=== PATIENT | female | born 1950 | race Caucasian/White ===

== ENCOUNTER 2023-07-01 13:10 | Outpatient (POV) | payer MEDICARE, OTHER, SELFPAY ==
--- NOTE | 2023-07-01 14:03 | A.OFFVIS_ITS ---
HPI Data of Consult Patient: new to practice Consult date: 07/01/23 Requesting Physician: Elle Ruvalcaba APRN Primary Care Provider: Chloé Loco Consult Narrative Reason for consult: Left arm/hand numbness tingling/pain History of present illness: Ms. Mark is a 73 year old female who presents today as a new patient. She is a referral from [facility]. Today she rates her pain a 10 out of 10. Patient states she has pain throughout her left arm and into her left hand with numbness and tingling and severe pain that is almost constant. Patient does state that the pain gets worse with certain positioning. She states this is been going on for more than 4 to 5 months unrelated to any specific trauma or injury. She states that she did have recent imaging done at [facility] in [place]. She states that she went to Dr. Ferguson due to him being a back surgeon and he was not recommending any surgery at this time. She states that he did state that this would be a last option. Patient does state that she has tried [id number] Tylenol and ibuprofen along with heat and ice and to picals with minimal relief. Patient is currently in physical therapy and goes once a week and has been already for 4 weeks. She states that this has just made her symptoms worse. She states the pain interferes with her ability perform activities of daily living such as cooking and cleaning. She states initially it was just her first 2 fingers but now it is moved into the entire hand. Patient does states she has a history of carpal tunnel and did do injections in both of her wrist that did completely resolve this issue up until lately. 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 Patient states she did just have surgery last year to remove a wedge from her lung. She states they are continuing to monitor this. 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 She states it does help some and that they tried her on higher dosages however she could not tolerate it due to the side effects. Patient does see a marker shipments Nai Cormier at [facility] and is prescribed Plavix. Patient has been prescribed compounded cream and pregabalin in the past. Her Apolinar has been reviewed and is appropriate. CC: Elle Ruvalcaba APRN [facility] Disclaimer: The information contained in this section may have been updated after the patient was seen, as this information can be updated by other users. Medical History (Updated 07/01/23 @ 14:49 by Elle Ruvalcaba APRN) Cancer COPD (chronic obstructive pulmonary disease) Diabetes Heart disease HLD (hyperlipidemia) HTN (hypertension) Surgical History (Updated 07/01/23 @ 14:49 by Lorrie Carty RN) History of cancer surgery Family History (Updated 07/01/23 @ 14:48 by Lorrie Carty RN) Other Unknown family medical history Social History (Updated 07/01/23 @ 14:51 by Lorrie Carty RN) Smoking Status: Never smoker alcohol intake: never current occupational status: retired Travel in the last 8 weeks: None Review of Systems Review of Systems Review of systems:: pertinent systems reviewed and negative unless documented below Review of systems (narrative): Review of Systems: General: No recent weight changes, no fever, no sleep disturbances Respiratory: No cough, no shortness of air, no recurring pulmonary infections Cardiovascular/peripheral vascular: No chest pain, no palpitations, no edema, no shortness of breath Gastrointestinal: No new onset incontinence, normal bowel movements reported Genitourinary: No new onset incontinence Musculoskeletal: Left arm/hand numbness/tingling/pain Psychiatric: [Normal mood/affect] Neurological: [Denies weakness in extremities], [denies balance issues] Meds Home Medications and Allergies Home Medications Medication Instructions Recorded Confirmed Type clopidogrel 75 mg tablet 75 mg PO DAILY 07/01/23 07/01/23 History furosemide 20 mg tablet 20 mg PO DAILY 07/01/23 07/01/23 History glimepiride 4 mg tablet 4 mg PO DAILY 07/01/23 07/01/23 History metoprolol succinate 25 mg 25 mg PO DAILY 07/01/23 07/01/23 History tablet,extended release 24 hr pregabalin 50 mg capsule 50 mg PO BID 07/01/23 07/01/23 History rosuvastatin 10 mg tablet 10 mg PO DAILY 07/01/23 07/01/23 History valsartan 40 mg tablet 40 mg PO DAILY 07/01/23 07/01/23 History New Prescriptions to Start Prescriptions: Objective Narrative: Physical Exam: General: Alert and oriented x3, no acute distress, pleasant and cooperative Lungs: Respirations even and unlabored, symmetrical chest expansion Eyes: PERRL Musculoskeletal: Flexion and extension of cervical [spine] somewhat guarded secondary to pain, [antalgic gait noted] positive Spurling's test Neurological: Speech clear, no gross sensory deficit Additional findings Additional findings: Cervical MRI without contrast 04/05/2023 Findings: There is normal alignment of the cervical vertebral bodies. Vertebral body height is preserved. Bone marrow signal intensity is normal. No edema or pathological marrow replacement. Signal intensity within the substance of the spinal cord is normal. There is no acute paraspinal abnormality. There is a 2 cm T2 hyperintense right thyroid nodule. C2-3: No focal disc herniation, central stenosis, or neuroforaminal narrowing. C3-4: No focal disc herniation. Bilateral facet osteoarthropathy which causes mild right greater than left foraminal narrowing. C4-5: Mild facet osteoarthropathy no significant canal stenosis mild bilateral foraminal narrowing. C5-C6: Annular disc bulge with degenerative endplate changes and facet osteoarthropathy. No significant canal stenosis or neuroforaminal narrowing along the right. There is moderate left foraminal narrowing. C6-7: There is an annular disc bulge with degenerative endplate changes and facet osteoarthropathy. No significant central canal stenosis there is mild bilateral foraminal narrowing. C7-T1: No focal disc herniation central stenosis or neuroforaminal narrowing. Assessment and Plan *Assessment and plan (1) Cervical radiculopathy: Status: Acute Category: Medical Code(s): M54.12 - Radiculopathy, cervical region (2) Left arm pain: Status: Acute Category: Medical Code(s): M79.602 - Pain in left arm (3) Left hand paresthesia: Status: Acute Category: Medical Code(s): R20.2 - Paresthesia of skin Plan Patient is experiencing significant pain all down her left arm and into her hand. Patient did have a positive Spurling test and limited range of motion of her cervical spine during today's visit. I have counseled the patient that she may benefit from a cervical epidural steroid injection. Risk and benefits were discussed with the patient and she would like to proceed forward with this plan of care. Patient is currently on blood thinner and I have counseled her that we will reach out to Dr. Cormier's office to confirm she can stop this medication prior to this injection. This will be contingent on whether we can proceed forward with this injection. We will also reach out to [facility] there in [place] and get a copy of her imaging. Patient has tried and failed conservative therapy such as oral medication, heat and ice, topicals, physical therapy, at home stretching exercise for longer than 6 weeks. We will submit to insurance for a MANDO C6-C7 under fluoroscopy. Patient has been instructed to contact the clinic with any concerns before the next appointment. Dr. Bianchi has reviewed this note and agrees with this plan of care. This note was dictated using voice recognition software and make contain errors or omissions.
[2023-07-01 14:47] VITALS: BP 112/63; PULSE 95; RESP 18; O2SAT 91; BMI 26.4
== END 2023-07-01 23:59 ==
PROVIDERS: PCP Internal Medicine; Visit Provider Nurse Practitioner Family
DX: M54.12 Radiculopathy, cervical region (principal); M79.602 Pain in left arm; R20.2 Paresthesia of skin
CPT/HCPCS: 99202; G0463

== ENCOUNTER 2023-08-03 13:29 | Day surgery (SDC) | payer MEDICARE, OTHER, SELFPAY ==
[2023-08-03 13:51] VITALS: BP 146/76; PULSE 83; RESP 18; TEMP 36.3; O2SAT 95; BMI 26.6
[2023-08-03] MEDS: IOPAMIDOL-200 (41%);10ML VIAL 10 ML IV (14:01)
--- NOTE | 2023-08-03 14:01 | P.PCN_ITS ---
Procedure Date: 08/03/23 Time: 13:50 Anesthesiologist:: Victor M Cao CRNA Complications:: None Pre-procedure Diagnosis:: Degenerative disc cervical spine multilevels. Cervical radiculopathy. Post-procedure Diagnosis:: Same. Indications for Procedure:: Patient is a very pleasant 73-year-old female comes our clinic today for cervical epidural steroid injection. Her main complaint is right arm radiculopathy. She does not report some posterior cervical neck pain. She rates her pain 7/10. Procedure Details:: Procedure:Cervical epidural steroid injection Informed consent was obtained and the risks and benefits of the procedure were explained to the patient. The patient was taken to the procedure room and noninvasive monitors placed, including noninvasive blood pressure cuff and pulse oximeter. The neck was prepped using Chloraprep as a cleansing solution. The C6- C7 interspace was viewed using fluroscopy. The skin and subcutaneous tissues were anesthetized using lidocaine 1.5% and a 25-gauge needle. After this an 18- gauge Touhy epidural needle was placed into the C6-C7 interspace under fluroscopy guidance and advanced using loss of resistance to air until the epidural space was encountered. After confirmation of needle placement in the epidural space using contrast dye, a solution containing normal saline, 2 mL and Depo-Medrol 80 mg was incrementally injected into the cervical epidural space.~ The patient tolerated the procedure well with no complications. The patient was observed in the Pain Clinic and then discharged home neurologically intact. Plan and Disposition:: Patient was discharged without incident.
[2023-08-03 14:03] VITALS: BP 137/72; PULSE 81; RESP 18; O2SAT 95
[2023-08-03 14:05] VITALS: BP 126/60; PULSE 90; RESP 20
== END 2023-08-03 14:03 | disposition home or self-care (01) ==
PROVIDERS: PCP Internal Medicine; Visit Provider Nurse Anesthetist, Certified Registered
DX: M50.123 Cervical disc disorder at C6-C7 level with radiculopathy (principal)
CPT/HCPCS: 62321; Q9966

== ENCOUNTER 2023-08-23 11:32 | Outpatient (POV) | payer MEDICARE, OTHER, SELFPAY ==
[2023-08-23 11:42] VITALS: BP 139/79; PULSE 79; RESP 18; TEMP 36.8; O2SAT 98; BMI 26.4
--- NOTE | 2023-08-23 12:02 | A.OFFVIS_ITS ---
[facility] Pain Management SOAP Note Subjective:: Patient is a pleasant 73-year-old female who presents today for follow-up of cervical epidural steroid injection C6-C7 on 08/03/2023. We are currently treating the patient for cervical radiculopathy, left arm pain. Today she rates her pain a 7 out of 10. Patient states that she has had significant improvement from this injection and feels like it still helping. Patient does state that she still has her pain however it is much more manageable. Patient states that she has been able to do more following this injection. She does state that her pain had been a 20 out of 10 and brought it down to the 7 out of 10 so it has made a difference. She does state that she did have concerns that she did not actually meet the provider who did the injection. Patient states she was already positioned for this injection when he came in and and that she was unsure whether or not if imaging was done for this injection. Patient does state that she continues to have chronic pain and a lot related to nerve pain from having cancer multiple times and doing radiation. Patient does state that she has been prescribed a compounded cream in the past and it does help somewhat. Patient is currently on pregabalin. Her Apolinar has been reviewed. Review of Systems: General: No recent weight changes, no fever, no sleep disturbances Respiratory: No cough, no shortness of air, no recurring pulmonary infections Cardiovascular/peripheral vascular: No chest pain, no palpitations, no edema, no shortness of breath Gastrointestinal: No new onset incontinence, normal bowel movements reported Genitourinary: No new onset incontinence Musculoskeletal: Left arm pain Psychiatric: [Normal mood/affect] Neurological: [Denies weakness in extremities], [denies balance issues] Objective:: Physical Exam: General: Alert and oriented x3, no acute distress, pleasant and cooperative Lungs: Respirations even and unlabored, symmetrical chest expansion Eyes: PERRL Musculoskeletal: Flexion and extension of left shoulder somewhat guarded secondary to pain, [antalgic gait noted] Neurological: Speech clear, no gross sensory deficit Assessment:: Left arm pain, chronic pain syndrome Plan:: I have reviewed over with the patient that multiple images were taking with C arm for her cervical epidural. Patient was provided picture imaging to look at to show. I have also discussed with the patient in future that anytime she can request to see the provider prior to the injection if she has additional questions or concerns. I will order the patient a compounded cream and patient will return to clinic in 1 month for reevaluation of symptoms and plan of care. Patient has had significant improvement following her injection. Patient has been instructed to contact the clinic with any concerns before the next appointment. Dr. Bianchi has reviewed this note and agrees with this plan of care. This note was dictated using voice recognition software and make contain errors or omissions. [facility] Disclaimer: The information contained in this section may have been updated after the patient was seen, as this information can be updated by other users. Medical History Cancer COPD (chronic obstructive pulmonary disease) Diabetes HTN (hypertension) HLD (hyperlipidemia) Heart disease Surgical History History of cancer surgery Family History Other Unknown family medical history Social History Smoking Status: Never smoker alcohol intake: never current occupational status: other Travel in the last 8 weeks: None
== END 2023-08-23 23:59 ==
LOC: SC.PAIN 11:33
PROVIDERS: PCP Internal Medicine; Visit Provider Nurse Practitioner Family
DX: M79.602 Pain in left arm (principal); G89.4 Chronic pain syndrome
CPT/HCPCS: 99212; G0463

== ENCOUNTER 2023-11-04 14:18 | Outpatient (POV) | payer MEDICARE, OTHER, SELFPAY ==
--- OUTSIDE RECORDS SUMMARY | 2023-11-04 14:20 | XMS_ITS | Clinical Summary ---
Author Name Unknown Address [address] [place] [address] Phone Organization [facility] Address [address] [place] [address] Phone Care Team Providers Care Managed Services Consultant Name Role Phone Panda Paige Unavailable Unavailable Conditions or Problems Problem Name Problem Code Onset Date Status Entry Date Provider Comment Standard Description Annotate History of renal cell carcinoma 684725003 (SNOMED CT) Active Leandra Pettit History of malignant neoplasm of kidney Disruption of external operation (surgical) wound-Initial encounter T81.31xA (ICD-10-CM) Active Leandra Pettit Disruption of external operation (surgical) wound, not elsewhere classified, initial encounter Infection following a procedure, initial encounter T81.4xxA (ICD-10-CM) Active Leandra Pettit Infection following a procedure, initial encounter Hx of nephrectomy [id number] (SNOMED CT) Active Erik Swann MD History of surgery Femoral femoral bypass [id number] (SNOMED CT) Active Erik Swann MD Femoral-femor al artery vascular bypass Peripheral artery disease 417165561 (SNOMED CT) Active Erik Swann MD Peripheral arterial occlusive disease Cellulitis, groin, left 39676671 (SNOMED CT) Active Erik Swann MD Cellulitis of groin Medications Medication Instructions Start Date Stop Date Generic Name NDC Provider MINOCYCLINE HCL 100 MG CAPS 100mg po MWF MINOCYCLINE HCL 57067037010 Erik Swann MD FUROSEMIDE 20 MG TABS one tablet by mouth daily FUROSEMIDE 40065915707 Modesta Perez PLAVIX 75 MG TABS one tablet by mouth daily CLOPIDOGREL BISULFATE 06695106441 Modesta Perez BYSTOLIC 5 MG TABS one tablet by mouth daily NEBIVOLOL HCL 56007070598 Modesta Perez BETAMETHASONE VALERATE CREA BETAMETHASONE VALERATE CREA 83301192527 Modesta Perez ASPIRIN ADULT LOW DOSE 81 MG TBEC daily ASPIRIN 12824735069 Modesta Perez ORBACTIV 400 MG SOLR 1200mg IV today ORITAVANCIN DIPHOSPHATE [id number] Erik Swann MD MINOCYCLINE HCL 100 MG CAPS 100mg po BID MINOCYCLINE HCL 76883017100 Erik Swann MD Medications Administered No information available. Allergies, Adverse Reactions, Alerts Allergy Name Reaction Description Start Date Severity Statu s Provider LEVAQUIN Rash Severe Active Erik anthony MD Results Date Name Value Unit Range Flag Description Office Visit: Room 6 MEDS REVIEW Done Documenta tion of current medications (procedure) DIET CHIEF OF HARBOR PATROL yes Dietary management education, guidance, and counseling (procedure) CIGARET SMKG yes Tobacco smoking status SMOK STATUS Former smoker Tobacco smoking status Lab Report: CBC WITH AUTO DI FFERENTIAL IMMATUREGRAN 0.02 10*3/MM3 0.00-0.03 Immature granulocytes [#/volume] in Blood BASO# 0.03 10*3/mm3 0.00-0.20 Basophils [#/vol ume] in Blood EOS ABSLT 0.29 10*3/uL 0.10-0.30 Eosinophi ls [#/volume] in Blood MONOSCT AUTO 0.42 10*3/uL 0.00-1.00 Monocy vania [#/volume] in Blood by Automated count LYMPHCT AUTO 1.37 10*3/mm3 0.60-4.80 Lymph ocytes [#/volume] in Blood by Automated count ABS NEUTROPH 2.85 10*3/uL 1.50-8.30 Neutro phils [#/volume] in Blood IMM GRANU % 0.4 % 0.0-0.6 Immature granulocytes/100 leukocytes in Blood [id number] 0.6 % 0.0-1.0 GE use only - for [employer] import when terms are not otherwise specified % EOS AUTO 5.8 % 0.0-3.0 H Eosinophil s/100 leukocytes in Blood by Automated count MONOCYTE % 8.4 % 0.0-12.0 Monocytes /100 leukocytes in Blood by Automated count LYMPHOCY BF 27.5 % 24.0-44.0 lymphoc ytes as percent of body fluid leukocytes PMN % 57.3 % 41.0-71.0 Neutrophils /100 leukocytes in Blood by Automated count PLATELETS 175 10*3/mm3 150-450 Platelets [#/volume] in Blood by Automated count RDW 14.0 % 11.3-14.5 Erythrocyte distribution width [Ratio] by Automated count MCHC 32.9 G/DL 32.0-36.0 MCHC [Mass/ volume] by Automated count MCH 30.0 pg 27.0-31.0 MCH [Entiti c mass] by Automated count MCV 91.2 fL 80.0-99.0 MCV [Entiti c volume] by Automated count HCT 42.3 % 34.5-44.0 Hematocrit [Volume Fraction] of Blood by Automated count HGB 13.9 g/dL 11.5-15.5 Hemoglobin [Mass/volume] in Blood RBC 4.64 10*6/mm3 3.89-5.14 Erythrocyt es [#/volume] in Blood by Automated count WBC 4.98 10*3/mm3 3.50-10.8 0 Leukocytes [#/volume] in Blood by Automated count Lab Report: SEDIMENTATION RA TE ESR 23 mm/h 0-30 Erythrocyte sedimentation rate by Westergren method Lab Report: C-REACTIVE PROTE IN CRPCARDRISK 1.50 MG/DL 0.00-10.0 0 C reactive protein [Mass/volume] in Serum or Plasma Lab Report: COMPREHENSIVE ME TABOLIC PANEL ANIONGAP 8.0 mmol/L 3.0-11.0 anion gap, serum BUN/CREAT 27.5 7.0-25.0 H Urea nitrogen/Creatinine [Mass Ratio] in Serum or Plasma GFRC 45 mL/min/1. 73m2 >60 L Glomerular Filtration Rate Calculation BILI TOTAL 0.4 mg/dL 0.3-1.2 Bilirubin. total [Mass/volume] in Serum or Plasma ALK PHOS 50 U/L 25-100 Alkaline owen sphatase [Enzymatic activity/volume] in Blood SGOT (AST) 20 U/L 0-33 Aspartate aminotransferase [Enzymatic activity/volume] in Serum or Plasma SGPT (ALT) 24 U/L 7-40 Alanine aminotransferase [Enzymatic activity/volume] in Serum or Plasma ALBUMIN 4.00 g/dL 3.20-4.80 Albumin [Mass/volume] in Serum or Plasma PROTEIN, TOT 6.7 g/dL 5.7-8.2 Protein [Mass/volume] in Serum or Plasma CALCIUM 9.6 mg/dL 8.7-10.4 Calcium [Moles/volume] in Serum or Plasma CO2 27.0 mmol/L 20.0-31.0 Carbon diox joe, total [Moles/volume] in Venous blood CHLORIDE 100 mmol/L 99-109 Chloride [Moles/volume] in Serum or Plasma POTASSIUM 4.1 mmol/L 3.5-5.5 Potassium [Moles/volume] in Serum or Plasma SODIUM 135 mmol/L 132-146 Sodium [Moles/volume] in Serum or Plasma CREATININE 1.20 mg/dL 0.60-1.30 Creatini ne [Mass/volume] in Serum or Plasma BUN 33 mg/dL 9-23 H Urea nitrogen [Mass/volume] in Serum or Plasma GLUCOSE SER 187 mg/dL 70-100 H Glucose [Mass/volume] in Serum or Plasma Plan of Care Type Date Detail Pending order Continue oral an tibiotics Pending order Change oral anti biotics Pending order CMP Pending order CBC with Differe ntial Pending order Sedimentation Ra te (ESR) Pending order C- reactive prot ein Pending order Continue oral an tibiotics Pending order CMP Pending order CBC with Differe ntial Pending order Sedimentation Ra te (ESR) Pending order C- reactive prot ein Pending order Wound Vac Pending order Continue oral an tibiotics Pending order Change oral anti biotics Pending order Wound Vac Pending order Hepatitis C Atb: (ICD 10 Code: Z11.59) Pending order New IV antibioti c Pending order CMP Pending order Sedimentation Ra te (ESR) Pending order C- reactive prot ein Pending order CBC with Differe ntial Pending order PIV/Butterfly Pending order Redress Wound Pending order Wound Culture an d Sensitivity Pending order Oritavancin (Orb activ) Pending order New Oral Antibio tic Pending order CMP Pending order Sedimentation Ra te (ESR) Pending order C- reactive prot ein Pending order CBC with Differe ntial Patient education Medications Patient education Medications Procedures Code Procedure Name Date Entry Date CPT-Cooral Continue oral antibiotics 20 26/06/27 CPT-coral Change oral antibiotics 2016 CPT-72738 CMP [id number] CBC with Differential 2016 CPT-08977 Sedimentation Rate (ESR) 201 11/09/27 CPT-32810 C- reactive protein CPT-Cooral Continue oral antibiotics 20 26/05/30 CPT-76061 CMP [id number] CBC with Differential 2016 CPT-91569 Sedimentation Rate (ESR) 201 11/07/30 CPT-25487 C- reactive protein CPT-06840 Wound Vac CPT-Cooral Continue oral antibiotics 20 26/05/23 CPT-coral Change oral antibiotics 2016 CPT-25795 Wound Vac 07563 Hepatitis C Atb: (ICD 10 Code: Z11.59) 20 26/05/22 CPT-julianne New IV antibiotic CPT-18282 PIV/Butterfly CPT-WC Redress Wound CPT-18613 Wound Culture and Sensitivity [id number] Oritavancin (Orbactiv) 05/19 CPT-vick New Oral Antibiotic Vital Signs Date Name Value Unit Description BMI (Body Mass Index) 28.35 kg/m2 Bod y Mass Index (Ratio) Body Temperature 98.5 [degF] temperat ure E&M BP Diastolic 72 mm[Hg] blood pressu re, diastolic BP Systolic 118 mm[Hg] blood pressur e, systolic Heart Rate 78 /min pulse rate Respiratory Rate 16 /min respirat ory rate E&M Weight Measured 131 [lb_av] weight E& M Height 57 [in_us] height E&M Immunizations Vaccine Administration Date Standard Description CVX Co de Dose Afluria Intramuscular Suspension Afluria Intramuscular Suspension 141 Unknown Pneumovax 23 Injection Injectable 25 MCG/0.5ML Pneumovax 23 Injection Injectable 25 MCG/0.5ML 33 Unknown Advance Directives Directive Description Start Date DISCUSSED - NO DECISION MADE
[2023-11-04 14:36] VITALS: BP 132/75; PULSE 81; RESP 18; O2SAT 93; BMI 26.4
--- NOTE | 2023-11-04 15:00 | EXP.PAIN.SOA ---
[facility] Disclaimer: The information contained in this section may have been updated after the patient was seen, as this information can be updated by other users. Medical History Cancer COPD (chronic obstructive pulmonary disease) Diabetes HTN (hypertension) HLD (hyperlipidemia) Heart disease Surgical History History of cancer surgery Family History Other Unknown family medical history Social History Smoking Status: Never smoker alcohol intake: never current occupational status: other Travel in the last 8 weeks: None PM Subjective & Objective Subjective Subjective:: Patient is a pleasant 73-year-old female who presents today for follow-up. Today she rates her pain an 8 out of 10. Patient states she feels like the last injection has officially worn off and she is back to her baseline. She states her pain is throughout her left arm and into her left hand with numbness and tingling. She states the pain is back to being pretty significant and does interfere with her ability to perform activities of daily living such as cooking and cleaning. Patient does state that the pain gets worse with certain positioning. She has tried [id number] Tylenol and ibuprofen along with heat and ice and topicals with minimal relief. She does state that she continues at home stretching exercise since her last injection with minimal relief. Patient did recently complete her physical therapy. From our last visit she does state that she ended up having thyroid surgery and then ended up with a blood bleed that she is recovering from. She states she is back on her blood thinner. Patient does see a advertising account executive Nai Cormier at [facility] and is prescribed Plavix. Patient has been prescribed compounded cream however she states that she has a skin reaction of a rash and discontinued this. Her Apolinar has been reviewed and is appropriate. Review of Systems: General: No recent weight changes, no fever, no sleep disturbances Respiratory: No cough, no shortness of air, no recurring pulmonary infections Cardiovascular/peripheral vascular: No chest pain, no palpitations, no edema, no shortness of breath Gastrointestinal: No new onset incontinence, normal bowel movements reported Genitourinary: No new onset incontinence Musculoskeletal: Neck pain, left arm pain, numbness tingling Psychiatric: [Normal mood/affect] Neurological: [Denies weakness in extremities], [denies balance issues] Pain at rest (0-10 scale): 8 Objective Objective:: Physical Exam: General: Alert and oriented x3, no acute distress, pleasant and cooperative Lungs: Respirations even and unlabored, symmetrical chest expansion Eyes: PERRL Musculoskeletal: Flexion and extension of cervical [spine] somewhat guarded secondary to pain, [antalgic gait noted] positive Spurling's test Neurological: Speech clear, no gross sensory deficit Has patient had previous pain injection?: No Conservative treatment options previously tried: Home exercise plan Length of treatment: Longer than 6 weeks, Physical Therapy Length of treatment: Longer than 6 weeks and Prescription medications Length of treatment: Longer than 6 weeks Meds Home Medications and Allergies Home Medications Medication Instructions Recorded Confirmed Type clopidogrel 75 mg tablet 75 mg PO DAILY 07/01/23 11/04/23 History furosemide 20 mg tablet 20 mg PO DAILY 07/01/23 11/04/23 History glimepiride 4 mg tablet 4 mg PO DAILY 07/01/23 11/04/23 History metoprolol succinate 25 mg 25 mg PO DAILY 07/01/23 11/04/23 History tablet,extended release 24 hr pregabalin 50 mg capsule 50 mg PO BID 07/01/23 11/04/23 History rosuvastatin 10 mg tablet 10 mg PO DAILY 07/01/23 11/04/23 History valsartan 40 mg tablet 40 mg PO DAILY 07/01/23 11/04/23 History New Prescriptions to Start Prescriptions: Allergies Allergy/AdvReac Type Severity Reaction Status Date / Time levofloxacin [From Levaquin] Allergy Verified 08/03/23 13:51 Assessment and Plan *Assessment and plan (1) Cervical radiculopathy: Status: Acute Category: Medical Code(s): M54.12 - Radiculopathy, cervical region (2) Left arm pain: Status: Acute Category: Medical Code(s): M79.602 - Pain in left arm (3) Left hand paresthesia: Status: Acute Category: Medical Code(s): R20.2 - Paresthesia of skin Plan Patient is experiencing worsening pain in her neck with radiating symptoms to her left arm and numbness and tingling into her fingers. Patient did have limited range of motion of her cervical spine and a positive Spurling's test. Patient did previously have a cervical epidural back in July that did provide 50% improvement and did make her pain more manageable and felt more functional. Patient stated that this injection has taken down the severity and worked up until the last couple of weeks. I did discuss with patient that she may benefit from a repeat cervical epidural steroid injection. Risk and benefits were discussed with patient and she would like to proceed forward with this plan of care. Patient is now back on her Plavix blood thinner and we will contact her provider to confirm she can stop this medication prior to this injection. Patient is agreeable to this. Patient has tried and failed conservative therapy including continued at home stretching exercise that was physical therapist guided. We will schedule the patient for a MANDO C6-C7 under fluoroscopy. Patient has been instructed to contact the clinic with any concerns before the next appointment. Dr. Bianchi has reviewed this note and agrees with this plan of care. This note was dictated using voice recognition software and make contain errors or omissions.
== END 2023-11-04 23:59 | disposition home or self-care (01) ==
LOC: SC.PAIN 14:19
PROVIDERS: PCP Internal Medicine; Visit Provider Nurse Practitioner Family
DX: M54.12 Radiculopathy, cervical region (principal); M79.602 Pain in left arm; R20.2 Paresthesia of skin
CPT/HCPCS: 99212; G0463

== ENCOUNTER 2023-11-23 13:45 | Day surgery (SDC) | payer MEDICARE, OTHER, SELFPAY ==
--- OUTSIDE RECORDS SUMMARY | 2023-11-23 13:47 | XMS_ITS | Clinical Summary ---
Author Name Unknown Address [address] [place] [address] Phone Organization [facility] Address [address] [place] [address] Phone Care Team Providers Care Agronomy Manager Name Role Phone Panda Paige Unavailable Unavailable Conditions or Problems Problem Name Problem Code Onset Date Status Entry Date Provider Comment Standard Description Annotate History of renal cell carcinoma 157847810 (SNOMED CT) Active Leandra Pettit History of malignant neoplasm of kidney Disruption of external operation (surgical) wound-Initial encounter T81.31xA (ICD-10-CM) Active Leandra Pettit Disruption of external operation (surgical) wound, not elsewhere classified, initial encounter Infection following a procedure, initial encounter T81.4xxA (ICD-10-CM) Active Leandra Pettit Infection following a procedure, initial encounter Hx of nephrectomy 945214955 (SNOMED CT) Active Erik Swann MD History of surgery Femoral femoral bypass 14658713 (SNOMED CT) Active Erik Swann MD Femoral-femor al artery vascular bypass Peripheral artery disease 807328903 (SNOMED CT) Active Erik Swann MD Peripheral arterial occlusive disease Cellulitis, groin, left 40791450 (SNOMED CT) Active Erik Swann MD Cellulitis of groin Medications Medication Instructions Start Date Stop Date Generic Name NDC Provider MINOCYCLINE HCL 100 MG CAPS 100mg po MWF MINOCYCLINE HCL [id number] Erik Swann MD FUROSEMIDE 20 MG TABS one tablet by mouth daily FUROSEMIDE [id number] Modesta Perez PLAVIX 75 MG TABS one tablet by mouth daily CLOPIDOGREL BISULFATE 48495801898 Modesta Perez BYSTOLIC 5 MG TABS one tablet by mouth daily NEBIVOLOL HCL 58980296370 Modesta Perez BETAMETHASONE VALERATE CREA BETAMETHASONE VALERATE CREA 14753519337 Modesta Perez ASPIRIN ADULT LOW DOSE 81 MG TBEC daily ASPIRIN 42027440709 Modesta Perez ORBACTIV 400 MG SOLR 1200mg IV today ORITAVANCIN DIPHOSPHATE [id number] Erik Swann MD MINOCYCLINE HCL 100 MG CAPS 100mg po BID MINOCYCLINE HCL 20436624758 Erik Swann MD Medications Administered No information available. 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 Dietary management education, guidance, and counseling [...] 20 26/06/27 CPT-coral Change oral antibiotics 2016 CPT-91864 CMP [id number] CBC with Differential 2016 CPT-18662 Sedimentation Rate (ESR) 201 11/09/27 CPT-60099 C- reactive protein CPT-Cooral Continue oral antibiotics 20 26/05/30 CPT-46889 CMP [id number] CBC with Differential 2016 CPT-01512 Sedimentation Rate (ESR) 201 11/07/30 CPT-80120 C- reactive protein CPT-77039 Wound Vac CPT-Cooral Continue oral antibiotics 20 26/05/23 CPT-coral Change oral antibiotics 2016 CPT-40180 Wound Vac 85614 Hepatitis C Atb: (ICD 10 Code: Z11.59) 20 26/05/22 CPT-julianne New IV antibiotic CPT-73502 PIV/Butterfly CPT-WC [place] Wound CPT-71974 Wound Culture and Sensitivity cpt-J2407 Oritavancin (Orbactiv) [...]
[2023-11-23 14:06] VITALS: BP 125/71; PULSE 80; RESP 16; TEMP 36.2; O2SAT 92; BMI 25.9
[2023-11-23] MEDS: methylPREDNISolone ACETATE 80MG/ML VIAL 80 MG (14:13)
[2023-11-23 14:16] VITALS: BP 126/72; PULSE 76; RESP 18; O2SAT 94
--- NOTE | 2023-11-23 14:17 | P.PCN_ITS ---
Procedure Date: 11/23/23 Time: 14:00 Anesthesiologist:: Victor M Cao CRNA Complications:: None Pre-procedure Diagnosis:: Degenerative disc cervical spine multilevels. Cervical radiculopathy. Post-procedure Diagnosis:: Same. Indications for Procedure:: Patient is a pleasant 73-year-old female comes our clinic today for cervical epidural steroid injection. Patient reports posterior cervical neck pain as well as bilateral arm radicular symptoms left greater than right. She describes pain as constant, dull, aching. Pain and tingling in the left arm to the fingers. She rates her pain 8/10. Procedure Details:: Procedure:Cervical epidural steroid injection Informed consent was obtained and the risks and benefits of the procedure were explained to the patient. The patient was taken to the procedure room and noninvasive monitors placed, including noninvasive blood pressure cuff and pulse oximeter. The neck was prepped using Chloraprep as a cleansing solution. The C6- C7 interspace was viewed using fluroscopy. The skin and subcutaneous tissues were anesthetized using lidocaine 1.5% and a 25-gauge needle. After this an 18- gauge Touhy epidural needle was placed into the C6-C7 interspace under fluroscopy guidance and advanced using loss of resistance to air until the epidural space was encountered. After confirmation of needle placement in the epidural space using contrast dye, a solution containing normal saline, 2 mL and Depo-Medrol 80 mg was incrementally injected into the cervical epidural space.~ The patient tolerated the procedure well with no complications. The patient was observed in the Pain Clinic and then discharged home neurologically intact. Plan and Disposition:: Patient was discharged without incident.
[2023-11-23] MEDS: IOPAMIDOL-200 (41%);10ML VIAL 2 ML IV (14:18)
== END 2023-11-23 14:18 | disposition home or self-care (01) ==
PROVIDERS: PCP Internal Medicine; Visit Provider Nurse Anesthetist, Certified Registered
DX: M54.12 Radiculopathy, cervical region (principal)
CPT/HCPCS: 62321; J1010; Q9966

== ENCOUNTER 2024-03-06 13:41 | Outpatient (POV) | payer MEDICARE, OTHER, SELFPAY ==
[2024-03-06 14:25] VITALS: BP 134/68; PULSE 89; RESP 16; O2SAT 97; BMI 25.9
--- NOTE | 2024-03-06 14:49 | EXP.PAIN.SOA ---
[facility] Disclaimer: The information contained in this section may have been updated after the patient was seen, as this information can be updated by other users. Medical History Cancer COPD (chronic obstructive pulmonary disease) Diabetes HTN (hypertension) HLD (hyperlipidemia) Heart disease Surgical History History of cancer surgery Family History Other Unknown family medical history Social History Smoking Status: Never smoker alcohol intake: never current occupational status: other Travel in the last 8 weeks: None PM Subjective & Objective Subjective Subjective:: Patient is a pleasant 73-year-old female who presents today for follow-up. Today she rates her pain an 7 out of 10. She states that the last injection that was done back in November did provide at least 65% improvement and has lasted up until the last 2 weeks. Patient states she is starting to experience more numbness and tingling that does radiate into her left lower extremity. 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 Patient states the pain is starting to interfere with her ability perform activities of daily living such as cooking and cleaning again. Patient is interested in repeating her prior injections because she did get such significant improved function. She has tried [id number]-[id number] Tylenol and ibuprofen along with heat and ice and topicals with minimal relief. She does state that she continues at home stretching exercise since her last injection with minimal relief. She sees a steamboat inspector Nai Cormier at [place] and is prescribed Plavix. Patient was prescribed compounded cream however it caused a rash and discontinued use. Her Apolinar has been reviewed and is appropriate. Review of Systems: General: No recent weight changes, no fever, no sleep disturbances Respiratory: No cough, no shortness of air, no recurring pulmonary infections Cardiovascular/peripheral vascular: No chest pain, no palpitations, no edema, no shortness of breath Gastrointestinal: No new onset incontinence, normal bowel movements reported Genitourinary: No new onset incontinence Musculoskeletal: Neck pain, left arm pain, numbness tingling Psychiatric: [Normal mood/affect] Neurological: [Denies weakness in extremities], [denies balance issues] Pain at rest (0-10 scale): 7 Objective Objective:: Physical Exam: General: Alert and oriented x3, no acute distress, pleasant and cooperative Lungs: Respirations even and unlabored, symmetrical chest expansion Eyes: PERRL Musculoskeletal: Flexion and extension of cervical [spine] somewhat guarded secondary to pain, [antalgic gait noted] positive Spurling's test Neurological: Speech clear, no gross sensory deficit Has patient had previous pain injection?: Yes Percent improvement in pain since last injection: 65% Conservative treatment options previously tried: Home exercise plan Length of treatment: Longer than 12 weeks Meds Home Medications and Allergies Home Medications ?Medication ?Instructions ?Recorded ?Confirmed ?Type clopidogrel 75 mg tablet 75 mg PO DAILY 07/01/23 03/06/24 History furosemide 20 mg tablet 20 mg PO DAILY 07/01/23 03/06/24 History glimepiride 4 mg tablet 4 mg PO DAILY 07/01/23 03/06/24 History metoprolol succinate 25 mg 25 mg PO DAILY 07/01/23 03/06/24 History tablet,extended release 24 hr pregabalin 50 mg capsule 50 mg PO BID 07/01/23 03/06/24 History rosuvastatin 10 mg tablet 10 mg PO DAILY 07/01/23 03/06/24 History valsartan 40 mg tablet 40 mg PO DAILY 07/01/23 03/06/24 History New Prescriptions to Start Prescriptions: Allergies Allergy/AdvReac Type Severity Reaction Status Date / Time levofloxacin [From Levaquin] Allergy Verified 08/03/23 13:51 Assessment and Plan *Assessment and plan (1) Left hand paresthesia: Status: Acute Category: Medical Code(s): R20.2 - Paresthesia of skin (2) Left arm pain: Status: Acute Category: Medical Code(s): M79.602 - Pain in left arm (3) Cervical radiculopathy: Status: Acute Category: Medical Code(s): M54.12 - Radiculopathy, cervical region Plan Patient is experiencing worsening numbness and tingling into her left upper extremity with limited range of motion of her cervical spine. Patient did have a positive Spurling's test. Patient did previously have 65% improvement with her last injection that lasted roughly 3 months. I have gone over with her the risk and benefits of repeat injection and she would like to proceed forward with this plan of care. Patient has tried and failed conservative therapy including continued at home stretching exercise for longer than 12 weeks. Patient will be scheduled for a repeat MANDO C6-C7 under fluoroscopy. Patient has been instructed to contact the clinic with any concerns before the next appointment. Dr. Bianchi has reviewed this note and agrees with this plan of care. This note was dictated using voice recognition software and make contain errors or omissions. All injections are used with Lidocaine or Bupivacaine and Depo Medrol.
== END 2024-03-06 23:59 | disposition home or self-care (01) ==
LOC: SC.PAIN 13:42
PROVIDERS: PCP Internal Medicine; Visit Provider Nurse Practitioner Family
DX: R20.2 Paresthesia of skin (principal); M79.602 Pain in left arm; M54.12 Radiculopathy, cervical region; Z73.89 Other problems related to life management difficulty; Z79.02 Long term (current) use of antithrombotics/antiplatelets
CPT/HCPCS: 99212; G0463

== ENCOUNTER 2024-03-28 14:25 | Day surgery (SDC) | payer MEDICARE, OTHER, SELFPAY ==
[2024-03-28 14:38] VITALS: BP 128/65; PULSE 108; RESP 16; TEMP 36.7; O2SAT 97; BMI 25.9
[2024-03-28] MEDS: methylPREDNISolone ACETATE 80MG/ML VIAL 80 MG (14:59)
[2024-03-28 15:00] VITALS: BP 112/72; PULSE 98; RESP 18; O2SAT 98
[2024-03-28 15:01] VITALS: BP 112/72; PULSE 98; RESP 18; O2SAT 98
[2024-03-28 15:05] VITALS: BP 115/69; PULSE 94; RESP 16; O2SAT 94
[2024-03-28] MEDS: IOPAMIDOL-200 (41%);10ML VIAL 10 ML IV (15:08)
--- NOTE | 2024-03-28 15:08 | P.PCN_ITS ---
Procedure Date: 03/28/24 Time: 15:15 Anesthesiologist:: Victor M Cao CRNA Complications:: None Pre-procedure Diagnosis:: Degenerative disc cervical spine multilevels. Cervical radiculopathy. Post-procedure Diagnosis:: Same. Indications for Procedure:: Patient is a pleasant 73-year-old female who comes our clinic today for cervical epidural steroid injection. Patient reports good results from her last cervical epidural steroid injection in November 2023. She reports posterior cervical neck pain as well as bilateral arm radicular symptoms at times. She rates her pain 6/10. Procedure Details:: Procedure:Cervical epidural steroid injection Informed consent was obtained and the risks and benefits of the procedure were explained to the patient. The patient was taken to the procedure room and noninvasive monitors placed, including noninvasive blood pressure cuff and pulse oximeter. The neck was prepped using Chloraprep as a cleansing solution. The C6- C7 interspace was viewed using fluroscopy. The skin and subcutaneous tissues were anesthetized using lidocaine 1.5% and a 25-gauge needle. After this an 18- gauge Touhy epidural needle was placed into the C6-C7 interspace under fluroscopy guidance and advanced using loss of resistance to air until the epidural space was encountered. After confirmation of needle placement in the epidural space using contrast dye, a solution containing normal saline, 2 mL and Depo-Medrol 80 mg was incrementally injected into the cervical epidural space.~ The patient tolerated the procedure well with no complications. The patient was observed in the Pain Clinic and then discharged home neurolog ically intact. Plan and Disposition:: Patient was discharged without incident.
== END 2024-03-28 15:05 | disposition home or self-care (01) ==
PROVIDERS: PCP Internal Medicine; Visit Provider Nurse Anesthetist, Certified Registered
DX: M50.30 Other cervical disc degeneration, unspecified cervical region (principal); M54.12 Radiculopathy, cervical region
CPT/HCPCS: 62321; J1010; Q9966